=== PATIENT | male | born 1950 | race Caucasian/White ===

== ENCOUNTER 2024-04-17 21:31 | Emergency (ER) | payer MEDICARE, MEDICAID, SELFPAY ==
[2024-04-17 21:33] VITALS: BP 157/75; PULSE 68; RESP 19; TEMP 37.1; O2SAT 95; BMI 24.3
[2024-04-18 00:02] VITALS: BP 131/72; PULSE 62; RESP 16; TEMP 36.2; O2SAT 94
[2024-04-18] MEDS: Lidocaine HCl 1 % MPF 5 ML VIAL 10 ML INFILTRATI (00:02)
--- NOTE | 2024-04-18 00:13 | ED_ITS ---
HPI - General Adult General Chief complaint: Skin/Abscess/Foreign Body Stated complaint: fishing hook stuck in L hand Time Seen by Provider: 04/17/24 23:43 Source: patient, RN notes reviewed and old records reviewed Mode of arrival: ambulatory Limitations: no limitations History of Present Illness ED Provider: Inés HPI narrative: 74-year-old male presents for evaluation of a fishhook in his left thumb Patient reports this happened with a brand new fistula that he has not used. He did about 20 minutes prior to arrival. He has pain to the left thumb only. He was unable to remove the hook himself He believes his tetanus is up-to-date Related Data Allergies Allergy/AdvReac Type Severity Reaction Status Date / Time No Known Allergies Allergy Verified 04/17/24 21:37 Review of Systems Integumentary/Breasts: Skin/Breast: Reports wounds (With foreign body still in the wound) PMFSH Social History Social History Advance Directives: No Advance Directives Information Provided: No Do you have a plan to hurt others: No Plan Physical Exam ED Vital Signs: Vital Signs - 24 hr 04/17/24 21:33 04/18/24 00:02 Temperature 98.7 F 97.2 F Pulse Rate 68 62 Respiratory Rate 19 16 Blood Pressure 157/75 H 131/72 Pulse Oximetry 95 94 Oxygen Delivery Method Room Air Room Air BMI result Body Mass Index 24.3 Skin Other: Patient has a puncture wound with metallic fish hook still embedded within the skin to the left thumb on the radial side Medications Administered Discontinued Medications Generic Name Dose Route Start Last Admin Trade Name Freq PRN Reason Stop Dose Admin Lidocaine HCl 10 ml 04/17/24 23:48 04/18/24 00:02 Lidocaine Hcl 1 % Mpf 5 Ml Vial INFILTRATI 04/17/24 23:49 10 ml ONCE ONE Administration Procedures Procedure Narrative Procedure Narrative: The patient's left thumb was prepped with alcohol swab. I injected 2 cc of lidocaine attempting to create a digital block. The patient's fingertip was not successfully anesthetized after 10 minutes. I injected 2 cc of lidocaine locally to the left thumb. I was able to use alligator clips to remove the fish hook through the entry wound. I had the patient soak the finger in Betadine postprocedure. Medical Decision Making Medical Decision Making MDM Narrative: The lizbeth on the fish hook appears small, will attempt to remove the fish hook through the entry wound. If unable to do so will attempt to cut the tip of the hook and push it through the rest of the skin. Differential Diagnosis Differential Diagnoses: The differential diagnosis associated with the presentation includes Metallic foreign body Puncture wound [place] Laceration Discharge Plan Discharge Clinical Impression: [place] injury to finger Patient Disposition: Home, Self-Care Instructions: Puncture Wound (ED) Additional Instructions: Keep the area clean and dry. Apply topical antibiotic every other day Print Language: Green[place]ic
[2024-04-18 00:49] VITALS: BP 131/72; PULSE 62; RESP 16; TEMP 36.2; O2SAT 94
== END 2024-04-18 00:49 | disposition home or self-care (01) ==
PROVIDERS: Emergency Provider Internal Medicine
DX: S61.042A Puncture wound with foreign body of left thumb without damage to nail, initial encounter (principal); W26.8XXA Contact with other sharp object(s), not elsewhere classified, initial encounter; Y93.9 Activity, unspecified; Y92.9 Unspecified place or not applicable; Y99.9 Unspecified external cause status
CPT/HCPCS: 99284